=== PATIENT | male | born 1965 | race African-American/Black ===

== ENCOUNTER 2017-08-14 11:42 | Inpatient (IN) | payer OTHER ==
--- NOTE | 2017-08-14 12:03 | RAD ---
RADIOGRAPH OF CHEST SINGLE VIEW: Date: 08/14/17 COMPARISON: 04/06/04. INDICATION: Chest pain, shortness of breath, and cough. FINDINGS: There is patchy right perihilar opacity. Cardiac silhouette is enlarged. Vasculature is prominent. Th ere is slight blunting of the left lateral costophrenic sulcus which could relate to small volume ple ural fluid. Leads and artifacts overlie the chest limiting detail. IMPRESSION: 1. Findings which indicated fluid overload. 2. Patchy right perihilar prominence could relate to edema or perihilar pneumonia. Correlate clinica lly and imaging follow-up may be obtained for documentation resolution. POS: [facility]
[2017-08-14 13:05] LABS: Hemoglobin 14.3 g/dL (14.0-18.0); Mean Corpuscular HGB CONC 33.3 g/dL (32.0-36.0); Mean Corpuscular Hemoglobin 30.7 pg (27.0-31.0); Mean Corpuscular Volume 92.1 fl (80.0-94.0); Mean Platelet Volume 9.1 fL (7.4-10.4); Platelet Count 172 thou/uL (130-400); RBC Distribution Width 12.6 % (11.5-14.5); Red Blood Cell (RBC) Count 4.66 mill/uL (4.70-6.10); White Blood Cell (WBC) Count 4.1 thou/uL (4.8-10.8)
[2017-08-14 13:06] LABS: ALT (SGPT) 76 U/L (8-55); AST (SGOT) 82 U/L (5-34); Albumin 3.8 g/dL (3.5-5.0); Alkaline Phosphatase 68 U/L (40-150); Anion Gap 13 mmol/L (10-20); BUN (Urea Nitrogen) 17 mg/dL (8.4-25.7); Bilirubin, Total 0.2 mg/dL (0.2-1.2); CK (CPK) 176 U/L (30-200); Calc. Creatinine Clearance 0 mL/min (70-130); Calcium 9.5 mg/dL (7.8-10.44); Carbon Dioxide 29 mmol/L (22-29); Chloride 96 mmol/L (98-107); Estimated GFR-MDRD 61; Globulin 4.6 g/dL (2.4-3.5); Glucose 296 mg/dL (70-105); Lipase 10 U/L (8-78); Potassium 4.2 mmol/L (3.5-5.1); Protein, Total 8.4 g/dL (6.0-8.3); Sodium 134 mmol/L (136-145)
[2017-08-14 13:08] LABS: CKMB 1.1 ng/mL (0-6.6); Troponin I Less than 0.010 ng/mL (< 0.028)
[2017-08-14 13:15] LABS: Band 8 % (5-11); Eosinophils 1 % (0-10); Lymphocytes 31 % (21-51); MDiff Complete? YES; Monocytes 7 % (0-10); Neutrophil 51 % (42-75); RBC Morphology Normal; Reactive Lymphocytes 2 % (0-10)
[2017-08-14] MEDS ORDERED: Dextrose 5% in Water 1,000 ML IV PRN (13:50)
[2017-08-14] MEDS ORDERED: Acetaminophen 325 MG TAB PO PRN (13:50)
[2017-08-14] MEDS ORDERED: Nitroglycerin 0.4 MG TAB (25 Tab Bottle) PO PRN (13:50)
[2017-08-14] MEDS ORDERED: Dextrose 50% Abboject 50 ML SYRINGE SLOW IVP PRN (13:50)
[2017-08-14] MEDS ORDERED: Oxymetazoline HCl 0.05% ( 15 ML ) ONE (13:52)
[2017-08-14] MEDS ORDERED: ISOVUE-370 76%-LOCM 1 ML ONE (14:00)
[2017-08-14] MEDS ORDERED: Morphine 4 MG/ML VIAL SLOW IVP PRN (14:15)
--- NOTE | 2017-08-14 14:25 | CT ---
CT ARTERIOGRAM CHEST WITH IV CONTRAST AND 3D MIP IMAGING: Date: 08/14/17 HISTORY: Chest pain. Dyspnea. FINDINGS: No comparison. There is good contrast opacification of pulmonary arteries and thoracic aorta with normal branching o f the great vessels. Mild atelectasis or scarring is present at the lung bases. Nonspecific lymph nod es are scattered about the mediastinum. No pleural fluid, lobar consolidation, or pneumothorax are ap parent. IMPRESSION: No CT evidence of pulmonary embolus. POS: [facility]
[2017-08-14 15:02] LABS: Bilirubin Negative (Negative); Blood, Urine Negative (Negative); Clarity CLEAR (Clear); Glucose, Urine (Dipstick) 250 mg/dL (Negative); Leukocyte Negative (Negative); Nitrite Negative (Negative); Protein, Urine (Dipstick) 30 mg/dL (Neg-Trace); Specific Gravity, Urine 1.018 (1.002-1.036); Urobilinogen 0.2 mg/dL (0.2-1.0)
[2017-08-14 15:04] LABS: Bacteria/HPF None Seen HPF (None Seen); Hyaline Casts/LPF 7-10 HYALINE CAST LPF (0-3 Hyaline); Pathc Cast-AUWi Flag 1.49 (0-2.49); RBC/HPF 0-3 HPF (0-3); Squamous Epithelial 0-3 HPF (0-3)
[2017-08-14 15:45] LABS: Troponin I Less than 0.010 ng/mL (< 0.028)
[2017-08-14 16:00] VITALS: BMI 39.8
[2017-08-14 16:43] LABS: Lactic Acid 2.5 mmol/L (0.5-2.2)
--- NOTE | 2017-08-14 17:38 | HP ---
HISTORY OF PRESENT ILLNESS: The patient gives history of shortness of breath with chest tightening w hich happened at his workplace. He was working at [employer]. He has been having fever an d cough off and on from last 2-3 days. This is also associated with body aches and has had loss of a ppetite and has been lethargic from last 2-3 days. He has had a flu shot for this year as well. No complaints of palpitations, PND, or orthopnea. His workplace called EMS and patient was brought here . The patient states he has had a stress test done 3-4 years ago here which was negative as far as ryan kauffman knows. PAST MEDICAL AND SURGICAL HISTORY: Diabetes mellitus type 2, obesity, dyslipidemia, left knee surger y. CURRENT MEDICATIONS: Metformin 500 mg daily. ALLERGIES: No known drug allergies. PERSONAL HISTORY: Does not abuse alcohol or drugs. No history of smoking. FAMILY HISTORY: Mother has history of breast cancer and is getting treated for the same. Father d at the age of 68 years and has had history of prostate cancer. REVIEW OF SYSTEMS: The following complete review of systems was negative, unless otherwise mentioned in the HPI or below: Constitutional: Weight loss or gain, ability to conduct usual activities. Skin: Rash, itching. Eyes: Double vision, pain. ENT/Mouth: Nose bleeding, neck stiffness, pain, tenderness. Cardiovascular: Palpitations, dyspnea on exertion, orthopnea. Respiratory: Shortness of breath, wheezing, cough, hemoptysis, fever or night sweats. Gastrointestinal: Poor appetite, abdominal pain, heartburn, nausea, vomiting, constipation, or diarr hea. Genitourinary: Urgency, frequency, dysuria, nocturia. Musculoskeletal: Pain, swelling. Neurologic/Psychiatric: Anxiety, depression. Allergy/Immunologic: Skin rash, bleeding tendency. PHYSICAL EXAMINATION: GENERAL: The patient is a 52-year-old male who is not in any acute distress at present. VITAL SIGNS: On arrival, blood pressure was 84/65, currently 136/100, pulse 94 per minute, respirato ry rate 18 per minute, temperature 98.6 degrees Fahrenheit, saturating 92% on room air. NECK: Supple, no elevated JVD. EYES: Extraocular muscles intact. Pupils reacting to light. ORAL CAVITY: Mucous membranes are moist. No exudates or congestion. CARDIOVASCULAR SYSTEM: S1, S2 heard. Regular rhythm. RESPIRATORY SYSTEM: Air entry 1+ bilateral. Scattered rhonchi plus bilateral. ABDOMEN: Soft, bowel sounds heard. No tenderness, rigidity or guarding. EXTREMITIES: No peripheral edema or calf tenderness. VASCULAR SYSTEM: Peripheral pulses 1+ bilateral. No ischemic ulcerations or gangrene. CENTRAL NERVOUS SYSTEM: No gross focal deficits seen. Patient is alert, awake, oriented well. PSYCHIATRIC SYSTEM: The patient's mood is euthymic. No hallucinations or delusions. IMAGING DATA AND LABORATORY DATA: CT angio chest done showed no evidence of PE. Chest x-ray done sh owed hilar prominence with suspicion for right-sided pneumonia. BUN 17, creatinine 1.46, glucose 296 , AST 82, ALT 76, total bilirubin 0.2. Cardiac enzymes were negative. BNP less than 10, albumin is 3.8, lipase is 10. White count of 4, hemoglobin and hematocrit 14 and 42, platelet count 172 with 51 % neutrophils. CLINICAL IMPRESSION AND PLAN: The patient will be admitted to telemetry for pneumonia with chest camelia n. We will place him on Levaquin 500 mg IV daily along with DuoNebs. The patient's initial symptoms appears to be viral and will obtain viral PCR. He will be on aspirin 325 mg p.o. daily and Levemir 10 units subcutaneously twice daily for now. We will restart his metformin in 30 hours as he has rec eived contrast for CT angio chest. We will obtain two more sets of cardiac enzymes as well. We will continue to closely monitor him for any hemodynamic compromise.
[2017-08-14] MEDS: HumaLOG 300 UNITS/3 ML VIAL SC PRN ×2 (18:05→22:01)
[2017-08-14 18:44] LABS: Troponin I Less than 0.010 ng/mL (< 0.028)
[2017-08-14] MEDS: Guaifenesin DM 100-10/5 ML UDCUP PO PRN (18:58)
[2017-08-14] MEDS ORDERED: Ondansetron HCl/PF 4 MG/2 ML Vial SLOW IVP PRN (21:51)
[2017-08-14] MEDS: Insulin Detemir 100 UNITS/ML 10 UNITS in Pre-Filled Syringe 1 EACH SC SCH (21:57)
[2017-08-15 05:34] LABS: Anion Gap 11 mmol/L (10-20); BUN (Urea Nitrogen) 10 mg/dL (8.4-25.7); Calc. Creatinine Clearance 187 mL/min (70-130); Calcium 8.7 mg/dL (7.8-10.44); Carbon Dioxide 29 mmol/L (22-29); Cardiac Risk 5.8 (Less than 4.5); Chloride 99 mmol/L (98-107); Cholesterol 115 mg/dl (< 200 Desired); Estimated GFR-MDRD Greater than 90; Glucose 207 mg/dL (70-105); HDL Cholesterol 20 mg/dL (>60 Neg Risk); LDL Cholesterol, Calculated 53 mg/dL; Potassium 3.8 mmol/L (3.5-5.1); Sodium 135 mmol/L (136-145); Triglycerides 210 mg/dL (Less than 150)
[2017-08-15 06:24] LABS: Eosinophils 1 % (0-10); Hemoglobin 12.5 g/dL (14.0-18.0); Lymphocytes 40 % (21-51); MDiff Complete? YES; Mean Corpuscular HGB CONC 32.7 g/dL (32.0-36.0); Mean Corpuscular Hemoglobin 30.1 pg (27.0-31.0); Mean Platelet Volume 8.6 fL (7.4-10.4); Monocytes 19 % (0-10); Neutrophil 40 % (42-75); Platelet Count 165 thou/uL (130-400); RBC Distribution Width 12.5 % (11.5-14.5); Red Blood Cell (RBC) Count 4.17 mill/uL (4.70-6.10); White Blood Cell (WBC) Count 3.8 thou/uL (4.8-10.8)
--- NOTE | 2017-08-15 10:44 | PDOC.PN ---
- Subjective Encounter Start Date: 08/15/17 Encounter Start Time: 10:00 Subjective: breathing better, no chest pain -: is amb in room - Objective MAR Reviewed: Yes Vital Signs & Weight: Vital Signs (12 hours) Temp Pulse Resp BP Pulse Ox 08/15/17 09:00 76 12 08/15/17 04:00 99.1 F 86 20 118/62 94 L 08/15/17 00:54 77 16 95 08/15/17 00:00 98.2 F 81 20 103/53 L 92 L I&O: 08/14/17 08/15/17 08/16/17 06:59 06:59 06:59 Intake Total 240 Balance 240 Result Diagrams: 08/15/17 04:25 08/15/17 04:25 Additional Labs: Accuchecks 08/15/17 08/14/17 08/14/17 06:10 20:46 17:00 POC Glucose 206 H 263 H 218 H Phys Exam - Physical Examination HEENT: PERRLA, moist MMs Neck: no JVD, supple Respiratory: no wheezing, no rales Cardiovascular: RRR, no significant murmur Gastrointestinal: soft, non-tender, positive bowel sounds Musculoskeletal: no edema, pulses present Neurological: non-focal, moves all 4 limbs Psychiatric: A&O x 3 Dx/Plan (1) PNA (pneumonia) Code(s): J18.9 - PNEUMONIA, UNSPECIFIED ORGANISM Status: Acute Qualifiers: Pneumonia type: due to unspecified organism (2) Influenza A Code(s): J10.1 - FLU DUE TO OTH IDENT INFLUENZA VIRUS W OTH RESP MANIFEST Status: Acute (3) DM type 2 (diabetes mellitus, type 2) Status: Chronic Qualifiers: Diabetes mellitus complication status: with unspecified complications Diabetes mellitus prison insulin use: without pruner use Qualified Code( s): E11.8 - Type 2 diabetes mellitus with unspecified complications (4) Obesity (BMI 30-39.9) Code(s): E66.9 - OBESITY, UNSPECIFIED Status: Chronic (5) Chest pain Code(s): R07.9 - CHEST PAIN, UNSPECIFIED Status: Resolved Qualifiers: Chest pain type: chest pain on breathing Qualified Code(s): R07.1 - Chest pain on breathing; R07.81 - Pleurodynia - Plan tropx3 -ve -: tx to med floor -: is on levaquin and tamiflu -: nebs -: will likely need outpt sleep study to r/o tiana * . Review of Systems - Medications/Allergies Allergies/Adverse Reactions: Allergies Allergy/AdvReac Type Severity Reaction Status Date / Time No Known Allergies Allergy Verified 04/02/13 11:08 Medications: Current Medications Acetaminophen (Tylenol) 650 mg PO Q4H PRN PRN Reason: Headache/Fever or Pain Last Admin: 08/14/17 18:58 Dose: 650 mg Albuterol/Ipratropium (Duoneb) 3 ml NEB [id number] [id number] Last Admin: 08/15/17 09:00 Dose: 3 ml Aspirin (Aspirin) 325 mg PO DAILY [facility] Dextrose/Water (Dextrose 50%) 25 gm SLOW IVP PRN PRN PRN Reason: Hypoglycemia Enoxaparin Sodium (Lovenox) 40 mg SC 0900 [facility] Famotidine (Pepcid) 20 mg PO DAILY [facility] Glucagon (Glucagon) 1 mg IM PRN PRN PRN Reason: Hypoglycemia Guaifenesin/Dextromethorphan (Robitussin Dm) 15 ml PO Q4H PRN PRN Reason: Cough Last Admin: 08/14/17 18:58 Dose: 15 ml Dextrose/Water (D5w) 1,000 mls @ 0 mls/hr IV .Q0M PRN; As Directed PRN Reason: Hypoglycemia Insulin Detemir 10 units/ (Miscellaneous Medication) 0.1 mls @ 0 mls/hr SC BID [facility] Last Admin: 08/14/17 21:57 Dose: 0.1 mls Levofloxacin 500 mg/ Device 100 mls @ 100 mls/hr IVPB 1200 DOR[facility] Insulin Human Lispro (Humalog) 0 units SC .MODERATE SLIDING SC PRN PRN Reason: Moderate Correctional Scale Last Admin: 08/14/17 18:05 Dose: 4 units Insulin Human Lispro (Humalog) 0 units SC .BEDTIME SLIDING SC PRN PRN Reason: Bedtime Correctional Scale Last Admin: 08/14/17 22:01 Dose: 3 unit Morphine Sulfate (Morphine) 2 mg SLOW IVP Q4H PRN PRN Reason: Moderate Pain (4-6) Last Admin: 08/14/17 20:08 Dose: 2 mg Nitroglycerin (Nitrostat) 0.4 mg PO Q5MIN PRN PRN Reason: Chest Pain Ondansetron HCl (Zofran) 4 mg SLOW IVP Q4H PRN PRN Reason: Nausea/Vomiting Oseltamivir Phosphate (Tamiflu) 75 mg PO BID [facility] Stop: 08/19/17 21:01 Tramadol HCl (Ultram) 50 mg PO Q6H PRN PRN Reason: Pain
[2017-08-15] MEDS: Enoxaparin Sodium 40 MG/0.4 ML SYRINGE SC SCH (11:29)
[2017-08-15] MEDS: Insulin Detemir 100 UNITS/ML 10 UNITS in Pre-Filled Syringe 1 EACH SC SCH ×2 (11:29→21:00)
[2017-08-15] MEDS: Oseltamivir 75 MG CAP PO SCH ×2 (11:30→20:58)
[2017-08-15] MEDS: Aspirin 325 MG TAB PO SCH (11:30)
[2017-08-15] MEDS: Famotidine 20 MG TAB PO SCH (11:30)
[2017-08-15] MEDS: HumaLOG 300 UNITS/3 ML VIAL SC PRN ×3 (11:31→21:07)
[2017-08-15] MEDS: Guaifenesin DM 100-10/5 ML UDCUP PO PRN ×2 (11:37→20:58)
[2017-08-15] MEDS: traMADol HCl 50 MG TAB PO PRN ×2 (11:37→20:57)
[2017-08-16] MEDS: Guaifenesin DM 100-10/5 ML UDCUP PO PRN ×2 (05:16→22:50)
[2017-08-16] MEDS: HumaLOG 300 UNITS/3 ML VIAL SC PRN ×4 (06:10→21:53)
[2017-08-16] MEDS: Oseltamivir 75 MG CAP PO SCH ×2 (09:34→21:49)
[2017-08-16] MEDS: Aspirin 325 MG TAB PO SCH (09:34)
[2017-08-16] MEDS: Insulin Detemir 100 UNITS/ML 10 UNITS in Pre-Filled Syringe 1 EACH SC SCH ×2 (09:36→21:54)
[2017-08-16] MEDS: Enoxaparin Sodium 40 MG/0.4 ML SYRINGE SC SCH (09:36)
[2017-08-16] MEDS: Famotidine 20 MG TAB PO SCH (09:57)
--- NOTE | 2017-08-16 10:17 | PDOC.PN ---
- Subjective Encounter Start Date: 08/16/17 Encounter Start Time: 07:30 Subjective: has cough and is unable to bring sputum up -: is amb in room - Objective MAR Reviewed: Yes Vital Signs & Weight: Vital Signs (12 hours) Temp Pulse Resp BP Pulse Ox 08/16/17 07:58 98.3 F 79 20 120/75 90 L 08/16/17 06:05 76 14 94 L 08/16/17 04:00 98.6 F 78 18 129/72 92 L 08/16/17 00:28 73 16 93 L 08/16/17 00:00 98.3 F 73 18 104/63 92 L I&O: 08/15/17 08/16/17 08/17/17 06:59 06:59 06:59 Intake Total 240 1300 240 Output Total 425 Balance 240 875 240 Result Diagrams: 08/15/17 04:25 08/15/17 04:25 Additional Labs: Accuchecks 08/15/17 08/15/17 16:23 11:21 POC Glucose 223 H 259 H Phys Exam - Physical Examination HEENT: PERRLA, moist MMs Neck: no JVD, supple Respiratory: no rales, wheezing present Cardiovascular: RRR, no significant murmur Gastrointestinal: soft, non-tender, positive bowel sounds Musculoskeletal: no edema, pulses present Neurological: non-focal, moves all 4 limbs Psychiatric: A&O x 3 Dx/Plan (1) PNA (pneumonia) Code(s): J18.9 - PNEUMONIA, UNSPECIFIED ORGANISM Status: Acute Qualifiers: Pneumonia type: due to unspecified organism (2) Influenza A Code(s): J10.1 - FLU DUE TO OTH IDENT INFLUENZA VIRUS W OTH RESP MANIFEST Status: Acute (3) DM type 2 (diabetes mellitus, type 2) Status: Chronic Qualifiers: Diabetes mellitus complication status: with unspecified complications Diabetes mellitus custodial insulin use: without termite control servicer use Qualified Code( s): E11.8 - Type 2 diabetes mellitus with unspecified complications (4) Obesity (BMI 30-39.9) Code(s): E66.9 - OBESITY, UNSPECIFIED Status: Chronic (5) Chest pain Code(s): R07.9 - CHEST PAIN, UNSPECIFIED Status: Resolved Qualifiers: Chest pain type: chest pain on breathing Qualified Code(s): R07.1 - Chest pain on breathing; R07.81 - Pleurodynia - Plan on levaquin, tamiflu -: nebs, will add small dose of steroids -: mucinex, tessalon -: to amb in hallway -: may dc this evening if he is doing well * . Review of Systems - Medications/Allergies Allergies/Adverse Reactions: Allergies Allergy/AdvReac Type Severity Reaction Status Date / Time No Known Allergies Allergy Verified 04/02/13 11:08 Medications: Current Medications Acetaminophen (Tylenol) 650 mg PO Q4H PRN PRN Reason: Headache/Fever or Pain Last Admin: 08/14/17 18:58 Dose: 650 mg Albuterol/Ipratropium (Duoneb) 3 ml NEB [id number] [facility] Last Admin: 08/16/17 06:05 Dose: 3 ml Aspirin (Aspirin) 325 mg PO DAILY [facility] Last Admin: 08/16/17 09:34 Dose: 325 mg Dextrose/Water (Dextrose 50%) 25 gm SLOW IVP PRN PRN PRN Reason: Hypoglycemia Enoxaparin Sodium (Lovenox) 40 mg SC 0900 [facility] Last Admin: 08/16/17 09:36 Dose: 40 mg Famotidine (Pepcid) 20 mg PO DAILY [facility] Last Admin: 08/16/17 09:57 Dose: 20 mg Glucagon (Glucagon) 1 mg IM PRN PRN PRN Reason: Hypoglycemia Guaifenesin/Dextromethorphan (Robitussin Dm) 15 ml PO Q4H PRN PRN Reason: Cough Last Admin: 08/16/17 05:16 Dose: 15 ml Dextrose/Water (D5w) 1,000 mls @ 0 mls/hr IV .Q0M PRN; As Directed PRN Reason: Hypoglycemia Insulin Detemir 10 units/ (Miscellaneous Medication) 0.1 mls @ 0 mls/hr SC BID [facility] Last Admin: 08/16/17 09:36 Dose: 0.1 mls Levofloxacin 500 mg/ Device 100 mls @ 100 mls/hr IVPB 1200 [facility] Last Admin: 08/15/17 11:38 Dose: 100 mls Insulin Human Lispro (Humalog) 0 units SC .MODERATE SLIDING SC PRN PRN Reason: Moderate Correctional Scale Last Admin: 08/16/17 06:10 Dose: 4 units Insulin Human Lispro (Humalog) 0 units SC .BEDTIME SLIDING SC PRN PRN Reason: Bedtime Correctional Scale Last Admin: 08/15/17 21:07 Dose: 3 unit Morphine Sulfate (Morphine) 2 mg SLOW IVP Q4H PRN PRN Reason: Moderate Pain (4-6) Last Admin: 08/14/17 20:08 Dose: 2 mg Nitroglycerin (Nitrostat) 0.4 mg PO Q5MIN PRN PRN Reason: Chest Pain Ondansetron HCl (Zofran) 4 mg SLOW IVP Q4H PRN PRN Reason: Nausea/Vomiting Oseltamivir Phosphate (Tamiflu) 75 mg PO BID [facility] Stop: 08/19/17 21:01 Last Admin: 08/16/17 09:34 Dose: 75 mg Tramadol HCl (Ultram) 50 mg PO Q6H PRN PRN Reason: Pain Last Admin: 08/15/17 20:57 Dose: 50 mg
[2017-08-16] MEDS: Benzonatate 100 MG CAP PO SCH ×2 (14:06→21:48)
--- NOTE | 2017-08-16 15:32 | PQF ---
CLINICAL DOCUMENTATION IMPROVEMENT CLARIFICATION FORM: ICD-10 Updated PLEASE DO AN ADDENDUM TO THE PROGRESS NOTE WITH ANY DOCUMENTATION UPDATES OR ADDITIONS AND CARRY THROUGH TO DC SUMMARY. THANK YOU. DATE: 08/16/17 ATTN: DR. TURPIN Please exercise your independent, professional judgment in responding to the clarification form. Clinical indicators are provided on the bottom of this form for your review Please check appropriate box(s): [x ] Sepsis due to: (Pna, UTI, gangrenous gall bladder, etc.) pna Due to: [ ] Device (please specify) [ ] Implant [ ] Graft [ ] Infusion [ ] SIRS due to non-infectious process (please specify etiology) [ ] with organ dysfunction [ ] without organ dysfunction [ ] Severe sepsis with acute organ dysfunction of: (Examples: respiratory failure, encephalopathy, acute kidney failure, other) [ ] Localized infection without sepsis [ ] Other diagnosis [ ] Unable to determine In addition, please specify: Present on Admission (POA): [ ] Yes [ ] No [ ] Unable to determine For continuity of documentation, please document condition throughout progress notes and discharge summary. Thank You. CLINICAL INDICATORS - SIGNS / SYMPTOMS / LABS ER NOTE "SEPSIS" BP 73/53 WBC 3.8 LACTIC 3.4 RISKS: INFLUENZA PNEUMONIA TREATMENT: IV FLUIDS (GIVEN IN ER) IV LEVAQUIN ( GIVEN IN ER-PRESENT) TAMIFLU BLOOD AND SPUTUM CULTURES (This form is maintained as a part of the permanent medical record) 2014 [employer]. All Rights Reserved [email or web address] Office: [phone] [facility]
[2017-08-16] MEDS: guaiFENesin ER 600 MG TAB PO SCH (21:49)
[2017-08-17] MEDS: HumaLOG 300 UNITS/3 ML VIAL SC PRN (05:46)
[2017-08-17 08:24] VITALS: BP 133/77; TEMP 97.5
[2017-08-17] MEDS: Enoxaparin Sodium 40 MG/0.4 ML SYRINGE SC SCH (08:32)
[2017-08-17] MEDS: Aspirin 325 MG TAB PO SCH (08:34)
[2017-08-17] MEDS: Benzonatate 100 MG CAP PO SCH (08:35)
[2017-08-17] MEDS: Insulin Detemir 100 UNITS/ML 10 UNITS in Pre-Filled Syringe 1 EACH SC SCH (08:36)
[2017-08-17] MEDS: guaiFENesin ER 600 MG TAB PO SCH (08:36)
[2017-08-17] MEDS: Famotidine 20 MG TAB PO SCH (08:36)
[2017-08-17] MEDS: Oseltamivir 75 MG CAP PO SCH (08:37)
[2017-08-17] MEDS ORDERED: metFORMIN 500 MG TAB PO SCH ×2 (09:00→12:00)
--- NOTE | 2017-08-17 11:47 | PDOC.PN ---
- Subjective Encounter Start Date: 08/17/17 Encounter Start Time: 09:00 Subjective: breathing better, is amb in room - Objective MAR Reviewed: Yes Vital Signs & Weight: Vital Signs (12 hours) Temp Pulse Resp BP Pulse Ox 08/17/17 11:33 82 12 95 08/17/17 08:00 97.5 F L 83 14 133/77 92 L 08/17/17 06:23 91 14 95 08/17/17 00:44 94 L I&O: 08/16/17 08/17/17 08/18/17 06:59 06:59 06:59 Intake Total 1300 1260 180 Output Total 425 Balance 875 1260 180 Result Diagrams: 08/15/17 04:25 08/15/17 04:25 Additional Labs: Accuchecks 08/17/17 08/17/17 08/16/17 10:50 04:08 21:05 POC Glucose 363 H 302 H 357 H 08/16/17 16:42 POC Glucose 253 H Phys Exam - Physical Examination HEENT: PERRLA, sclera anicteric hypertrophic tonsillitis, has hyperemia of post pharynx Neck: no JVD, supple Respiratory: no wheezing, no rales rhonchi+ Cardiovascular: RRR, no significant murmur Gastrointestinal: soft, non-tender, positive bowel sounds Musculoskeletal: no edema, pulses present Neurological: non-focal, moves all 4 limbs Psychiatric: A&O x 3 Dx/Plan (1) PNA (pneumonia) Code(s): J18.9 - PNEUMONIA, UNSPECIFIED ORGANISM Status: Acute Qualifiers: Pneumonia type: due to unspecified organism (2) Influenza A Code(s): J10.1 - FLU DUE TO OTH IDENT INFLUENZA VIRUS W OTH RESP MANIFEST Status: Acute (3) DM type 2 (diabetes mellitus, type 2) Status: Chronic Qualifiers: Diabetes mellitus complication status: with unspecified complications Diabetes mellitus halfway insulin use: without buttermaker use Qualified Code( s): E11.8 - Type 2 diabetes mellitus with unspecified complications (4) Obesity (BMI 30-39.9) Code(s): E66.9 - OBESITY, UNSPECIFIED Status: Chronic (5) Chest pain Code(s): R07.9 - CHEST PAIN, UNSPECIFIED Status: Resolved Qualifiers: Chest pain type: chest pain on breathing Qualified Code(s): R07.1 - Chest pain on breathing; R07.81 - Pleurodynia - Plan hemostable -: steroid taper, levaq and alb prn inhaler -: dc pt home -: counselled reg his fingerstick glucose being high for next 1-2 weeks due to -: -steroids * .
--- NOTE | 2017-08-17 17:24 | DIS ---
DATE OF ADMISSION: 08/14/2017 DATE OF DISCHARGE: 08/17/2017 DISCHARGE DISPOSITION: To home. PRIMARY DISCHARGE DIAGNOSES: Pneumonia, influenza A. SECONDARY DISCHARGE DIAGNOSES: Diabetes mellitus type 2, obesity, and chest pain on arrival, resolved. PROCEDURES DONE DURING HOSPITALIZATION: The patient has had CT angio chest done , which did not reveal any PE. Initial chest x-ray done was suggestive of patchy infiltrate and perihilar pneumonia on the right. Blood cultures x2 no growth. Respiratory virus panel, PCR confirmed influenza A H3. H&H 12 and 38, platelet count 165, total cholesterol 115, triglycerides 210, LDL 53. DISCHARGE MEDICATIONS: Levaquin 500 mg p.o. daily for another 6 days, metformin 500 mg p.o. three times daily, omeprazole 20 mg p.o. daily, Tamiflu 75 mg p.o. twice daily for total of 7 tablets, prednisone tapering dose starting at 10 mg over the course of 7 days and to discontinue, Mucinex 600 mg p.o. twice daily, and albuterol inhaler q.6 hourly p.r.n. ALLERGIES: No known drug allergies. DISCHARGE PLAN: The patient to follow up with primary care physician in 1 week. BRIEF COURSE DURING HOSPITALIZATION: The patient initially got admitted on the with complaints of shortness of breath and chest tightening. He was found to had pneumonia and his viral PCR came back positive for influenza A. The patient was on DuoNebs along with Tamiflu and Levaquin. Twenty-four hours into hospitalization, the patient started to have wheezing and increased shortness of breath and was placed on steroids. He has responded well to the above measures. His diabetes is uncontrolled due to steroids. His steroids will be rapidly tapered. This morning, he is ambulating and eating well and is wanting to go home. His metformin and has been increased to 3 times daily. The patient has to check his fingerstick glucose on a daily basis and record for a period of 10 days to follow up with his primary care physician. He needs to continue his Tamiflu full course and prednisone tapering dose as well. Please see a face to face documentation on [employer] for the day of discharge. [facility]
== END 2017-08-17 14:39 | disposition home or self-care (01) | DRG 871 ==
LOC: ERS 11:42 → 2NO 15:36 → T4-A 08-15 15:40
PROVIDERS: ADMIT Internal Medicine; ATTEND Internal Medicine
DX: A41.9 Sepsis, unspecified organism (principal); J18.9 Pneumonia, unspecified organism; J09.X2 Influenza due to identified novel influenza A virus with other respiratory manifestations; E11.9 Type 2 diabetes mellitus without complications; E78.5 Hyperlipidemia, unspecified; E66.9 Obesity, unspecified; Z68.39 Body mass index [BMI] 39.0-39.9, adult; Z80.3 Family history of malignant neoplasm of breast; Z80.42 Family history of malignant neoplasm of prostate
CPT/HCPCS: 36415; 36416; 71010; 71275; 80048; 80053; 80061; 81003; 81015; 82550; 82553; 83605; 83690; 83880; 84484; 85025; 87040; 87070; 87205; 87633; 93005; 94640; 94760; 96365; 96366; J1650; J1815; J1956; J2270; J2920; J7620